=== PATIENT | male | born 2000 | race Caucasian/White ===

== ENCOUNTER 2024-04-08 22:23 | Emergency (ER) | payer BC, SELFPAY ==
[2024-04-08 22:30] VITALS: BP 116/64; PULSE 84; RESP 16; TEMP 36.3; O2SAT 96; BMI 22.9
[2024-04-08 23:14] LABS: Add Manual Diff / Slide Review NO; Basophils Absolute Auto 0 /uL (0-100); Basophils Percent Auto 0.5 % (0-2); Eosinophils Absolute Auto 200 /uL (0-450); Hematocrit 41.9 % (41-53); Hemoglobin 14.2 g/dL (13.5-17.5); Lymphocytes Absolute Auto 2900 /uL (1100-4500); Lymphocytes Percent Auto 30.9 % (25-40); Mean Corpuscular HGB Conc 33.8 % (30-36); Mean Corpuscular Hemoglobin 29.3 PG (26-34); Mean Corpuscular Volume 86.6 fL (80-100); Monocytes Absolute Auto 600 /uL (0-900); Monocytes Percent Auto 6.4 % (3-14); Neutrophils Absolute Auto 5600 /uL (1500-7000); Neutrophils Percent Auto 60.2 % (50-75); Platelet Count 206 X10^3/uL (150-400); Red Blood Cell Count 4.84 X10^6/uL (4.5-5.9); Red Cell Distribution Width 12.8 % (11.6-14.8); White Blood Cell Count 9.4 X10^3/uL (4.5-11.0)
[2024-04-08 23:19] LABS: Ur Creatinine Normal (Normal); Ur Specific Gravity Normal (Normal); Urine Amphetamines Negative (Negative); Urine Barbiturates Negative (Negative); Urine Benzodiazepines Negative (Negative); Urine Cocaine Negative (Negative); Urine MDMA Negative (Negative); Urine Methadone Negative (Negative); Urine Methamphetamines Negative (Negative); Urine Opiates Negative (Negative); Urine Oxycodone Negative (Negative); Urine Phencyclidine Negative (Negative); Urine THC Positive (Negative); Urine Tricyclic Antidepressant Negative (Negative); Urine pH Normal (Normal)
[2024-04-08 23:25] LABS: Alanine Aminotransferase 15 IU/L (<50); Albumin 4.2 g/dL (3.5-5.0); Albumin Globulin Ratio 1.6 (1.0-2.8); Alkaline Phosphatase 64 U/L (38-126); Aspartate Aminotransferase 20 IU/L (17-59); BUN Creatinine Ratio 14.6 (6-22); Bilirubin Total 0.6 mg/dL (0.2-1.3); Blood Urea Nitrogen 12 mg/dL (9-20); Calcium 8.8 mg/dL (8.4-10.2); Carbon Dioxide 27 mmol/L (22-32); Chloride 109 mmol/L (98-107); Estimated Glomerular Filt Rate > 60 mL/min (>60); Globulin 2.7 g/dL (1.7-4.1); Glucose 101 mg/dL (70-100); HEMOLYSIS < 15 (0-50); Potassium 4.1 mmol/L (3.4-5.1); Sodium 139 mmol/L (137-145); Total Protein 6.9 g/dL (6.3-8.2)
[2024-04-08 23:33] LABS: Acetaminophen < 10 ug/mL (10-30); Ethanol (ETOH) < 10 mg/dL; Salicylate < 1.0 mg/dL (<20)
--- NOTE | 2024-04-08 23:41 | ED_ITS ---
HPI - Psych General Chief Complaint: Psychiatric Symptoms Stated Complaint: SI Time Seen by Provider: 04/08/24 22:53 Source: patient Mode of arrival: Ambulatory History of Present Illness HPI Narrative: 23-year-old male with history of polysubstance abuse, last alcohol use about 1 year ago, more remote use of ketamine and use of cocaine, more recent use of marijuana, can stop using marijuana last couple of days, requesting detox services, feeling suicidal, no specific plan. Denies injury to skin, denies injections, denies thoughts of hurting others. Social history: He states that his home is in the [facility], works seasonally at [employer] Related Data Allergies Allergy/AdvReac Type Severity Reaction Status Date / Time No Known Drug Allergies Allergy Verified 04/08/24 23:17 Review of Systems Review of Systems Narrative: see HPI Patient History Social History Smoking Status: Current every day smoker Smoking Status: Current every day smoker Substance Use Type: former substance user Exam Narrative Exam Narrative: GENERAL: Well-developed patient, in mild distress. HEAD: Atraumatic. Normocephalic. EYES: Pupils equal round and reactive. Extraocular motions intact. No scleral icterus. No injection or drainage. ENT: Nose without bleeding, purulent drainage. Throat without erythema, tonsillar hypertrophy or exudate. Airway patent. NECK: Trachea midline. Non tender CARDIOVASCULAR: Regular rate and rhythm without murmurs, gallops, or rubs. RESPIRATORY: Clear to auscultation. Breath sounds equal bilaterally. No wheezes, rales, or rhonchi. GASTROINTESTINAL: Abdomen soft, non-tender, nondistended. EXTREMITIES: No edema or joint tenderness. BACK: Nontender without deformity or crepitance. No flank tenderness. NEURO: AOx3. Nonfocal neuro exam PSYCH: good eye contact, admits to SI, no specific plan, wants help, subtance abuse marijuana most recent, denies HI, no flight of ideas, cooperative, good insight SKIN: No rash or erythema of visible areas Initial Vital Signs Initial Vital Signs: Vital Signs Temperature 97.4 F L 04/08/24 22:30 Pulse Rate 84 04/08/24 22:30 Respiratory Rate 16 04/08/24 22:30 Blood Pressure 116/64 04/08/24 22:30 Pulse Oximetry 96 04/08/24 22:30 Oxygen Delivery Method Room Air 04/08/24 22:30 Course Orders Ordered: ED Orders 04/08/24 23:00 Acetaminophen Stat Complete Blood Count AUTO DIFF Stat Comprehensive Metabolic Panel Stat Ethanol (ETOH) Stat Free T4, Direct Thyroxine Stat Salicylate Stat Thyroid Stimulating Hormone Stat 04/08/24 23:07 Urine Drug Screen, Rapid Stat 04/08/24 23:26 Consult to DIAMOND SORTER - Administrative Analyst Stat 04/08/24 23:59 COVID19 -Nasal RAPID Stat Vital Signs Vital signs: Vital Signs - 8 hr 04/08/24 22:30 Temperature 97.4 F L Pulse Rate 84 Respiratory Rate 16 Blood Pressure 116/64 Pulse Oximetry 96 Oxygen Delivery Method Room Air MDM - Psych Lab Data Attestation: I reviewed the patient's lab results. Lab results narrative: UDS positive cannabis otherwise labs unremarkable, ethanol negative, lytes okay, renal/liver fxn normal, CBC normal 04/08/24 23:00 04/08/24 23:00 Labs: Lab Results 04/08/24 04/08/24 04/08/24 Range/Units 23:00 23:07 23:59 WBC 9.4 (4.5-11.0) X10^3/uL RBC 4.84 (4.5-5.9) X10^6/uL Hgb 14.2 (13.5-17.5) g/dL Hct 41.9 (41-53) % MCV 86.6 (80-100) fL MCH 29.3 (26-34) PG MCHC 33.8 (30-36) % RDW 12.8 (11.6-14.8) % Plt Count 206 (150-400) X10^3/uL Neut % (Auto) 60.2 (50-75) % Lymph % (Auto) 30.9 (25-40) % [place] % (Auto) 6.4 (3-14) % Eos % (Auto) 2.0 (2-4) % Baso % (Auto) 0.5 (0-2) % Neut # (Auto) 5600 (9418-5821) /uL Lymph # (Auto) 2900 (1364-3098) /uL [place] # (Auto) 600 (0-900) /uL Eos # (Auto) 200 (0-450) /uL Baso # (Auto) 0 (0-100) /uL Sodium 139 (137-145) mmol/L Potassium 4.1 (3.4-5.1) mmol/L Chloride 109 H (98-107) mmol/L Carbon Dioxide 27 (22-32) mmol/L BUN 12 (9-20) mg/dL Creatinine 0.82 (0.66-1.25) mg/dL Estimated GFR > 60 (>60) mL/min BUN/Creatinine Ratio 14.6 (6-22) Glucose 101 H (70-100) mg/dL Calcium 8.8 (8.4-10.2) mg/dL Total Bilirubin 0.6 (0.2-1.3) mg/dL AST 20 (17-59) IU/L ALT 15 (<50) IU/L Alkaline Phosphatase 64 (38-126) U/L Total Protein 6.9 (6.3-8.2) g/dL Albumin 4.2 (3.5-5.0) g/dL Globulin 2.7 (1.7-4.1) g/dL Albumin/Globulin Ratio 1.6 (1.0-2.8) TSH 0.551 (0.47-4.68) uIU/mL Free T4 1.17 (0.78-2.19) ng/dL Salicylates < 1.0 (<20) mg/dL U Opiates 300ng/mL cut Negative (Negative) Ur Oxycodone Screen Negative (Negative) Urine Methadone Screen Negative (Negative) Acetaminophen < 10 (10-30) ug/mL Ur Barbiturates Screen Negative (Negative) U Tricyclic Antidepress Negative (Negative) Ur Phencyclidine Scrn Negative (Negative) Ur Amphetamines Screen Negative (Negative) U Methamphetamines Scrn Negative (Negative) Ur MDMA Scrn (Ecstasy) Negative (Negative) U Benzodiazepines Scrn Negative (Negative) Urine Cocaine Screen Negative (Negative) U Marijuana (THC) Screen Positive H (Negative) Urine pH Normal (Normal) Urine Specific [place] Normal (Normal) Ethyl Alcohol < 10 ( - 10) mg/dL Ur Creatinine Normal (Normal) SARS-CoV-2 (PCR) Negative (Negative) Urine Dip Bedside Urine Glucose Negative Bedside Urine Bilirubin - Negative Bedside Urine Ketone - Negative Urine Specific [place] 1.030 Bedside Urine Occult Blood - Negative Bedside Urine pH 6.0 Bedside Urine Protein - Negative Bedside Urine Urobilinogen - Negative Bedside Urine Nitrite - Negative Bedside Urine Leukocytes - Negative Esterase MDM Narrative Medical decision making narrative: 23-year-old male with polysubstance abuse, most recently using marijuana, can not stop using for the last 2 days, feels depressed, suicidal ideation without specific plan, requests for inpatient services. Serum study screen negative. UDS shows positive for THC otherwise negative. COVID swab negative. Electrolytes and CBC unremarkable, LFTs unremarkable, acetaminophen and salicylate levels negative, ethanol level negative. Medically cleared for psychiatric placement. 0145, patient accepted for transfer to [facility], [facility] accepting. Transport time anticipated transport 10am later this morning Discharge Plan Departure Patient Disposition: Xfer Psychiatric Hosp Clinical Impression: Suicidal ideation, Marijuana abuse
[2024-04-08 23:47] LABS: Free T4, Direct Thyroxine 1.17 ng/dL (0.78-2.19)
[2024-04-09 00:01] LABS: Thyroid Stimulating Hormone 0.551 uIU/mL (0.47-4.68)
[2024-04-09 00:18] LABS: COVID19 -Nasal RAPID Negative (Negative)
--- NOTE | 2024-04-09 01:48 | PC.NURSE ---
Pt accepted at [facility] with an arrival time of 1130.
[2024-04-09 07:31] VITALS: BP 98/60; PULSE 65; RESP 16; O2SAT 96
--- NOTE | 2024-04-09 07:52 | PC.NURSE ---
0730, this RN's first interaction with pt. VSS. 98/60, 65HR, 96%RA. Pt AOx4, cooperative, currently eating breakfast and requested additional cranberry juice.
--- NOTE | 2024-04-09 10:06 | PC.NURSE ---
Simona Chase [id number] with Kimberly OTERO [phone] @ 1000. Departed facility with [facility], EMT Lindsey accepted report.
== END 2024-04-09 10:09 ==
PROVIDERS: Emergency Provider Emergency Medicine
DX: R45.851 Suicidal ideations (principal); F12.10 Cannabis abuse, uncomplicated; Z11.52 Encounter for screening for COVID-19
CPT/HCPCS: 80053; 80305; 80320; 80329; 81003; 84439; 84443; 85025; 87635; 99284; G0480